=== PATIENT | female | born 1990 | race Caucasian/White ===

== ENCOUNTER → 2016-06-14 | Outpatient (CLI) | payer OTHER ==
--- NOTE | 2016-06-14 11:59 | DIAGNOSTIC IMAGING REPORT ---
SINUS CT CT DOSE: 289.26 mGycm HISTORY: Sinusitis X TECHNIQUE: Multiaxial CT images of the paranasal sinuses were performed and reformatted in the coronal plane without the use of contrast. COMPARISON: None. FINDINGS: Bulk of the sinuses are clear. Several small mucous retention cyst bases of the maxillary sinuses bilaterally. The estimated units are patent laterally. Orbital margins are intact. There is no evidence for bony destructive process. The mastoid air cells are clear. The nasal septum is midline. The orbits are unremarkable. IMPRESSION: 1. Several small mucous retention cyst at the bases of the maxillary sinuses. 2. Study is otherwise negative Electronically signed by: Hernan Santo M.D. 06/14/2016 11:58 AM Dictated Date/Time: 06/14/2016 11:55 AM
== END | disposition home or self-care (01) ==
LOC: C.CTS 11:04
PROVIDERS: ATTEND Otolaryngology
DX: J32.9 Chronic sinusitis, unspecified (principal)